=== PATIENT | male | born 1990 | race Two or more races ===

== ENCOUNTER 2020-05-04 02:48 | Inpatient (IN) | payer OTHER | END 2020-05-11 18:12 | disposition home or self-care (01) | DRG 637 | LOC: ER 02:48 → MEDJ 17:47 → MEDI 18:46 | PROVIDERS: ADMIT Internal Medicine | PROC: BW21ZZZ Computerized Tomography (CT Scan) of Abdomen and Pelvis (ICD-10-PCS; 2020-05-04) | PROC: BW40ZZZ Ultrasonography of Abdomen (ICD-10-PCS; 2020-05-06) | PROC: CF2YYZZ Tomographic (Tomo) Nuclear Medicine Imaging of Hepatobiliary System and Pancreas using Other Radionuclide (ICD-10-PCS; principal; 2020-05-08) | DX: E10.65 Type 1 diabetes mellitus with hyperglycemia (principal); A41.9 Sepsis, unspecified organism; K29.70 Gastritis, unspecified, without bleeding; E86.0 Dehydration; I80.8 Phlebitis and thrombophlebitis of other sites; Z79.4 Long term (current) use of insulin ==

== ENCOUNTER 2021-02-16 12:45 | Inpatient (IN) | payer OTHER ==
[~2021-02-16] VITALS: Ht 185.4 cm; Wt 78.0 kg
[~2021-02-16 12:45] MED LIST: HUMALOG MI100 UNIT/1
[2021-02-16] MEDS ORDERED: SEMGLEE100 UNIT/1 ×2 (13:02→13:03)
== END 2021-02-19 13:39 | disposition home or self-care (01) | DRG 639 ==
LOC: ER 12:45 → ICU-2 21:23 → ICU 02-17 20:40 → MEDI 02-18 13:38
PROVIDERS: ADMIT Internal Medicine; ATTEND Internal Medicine
DX: E10.10 Type 1 diabetes mellitus with ketoacidosis without coma (principal); E10.43 Type 1 diabetes mellitus with diabetic autonomic (poly)neuropathy; K52.9 Noninfective gastroenteritis and colitis, unspecified; E86.0 Dehydration; Z79.4 Long term (current) use of insulin; Z20.822 Contact with and (suspected) exposure to COVID-19

== ENCOUNTER 2022-03-08 12:23 | Inpatient (IN) | payer OTHER ==
[~2022-03-08] VITALS: Ht 182.9 cm; Wt 80.7 kg
[~2022-03-08 12:23] MED LIST changes: +SEMGLEE100 UNIT/1
[2022-03-21] MEDS ORDERED: BACTRIM DS TAB1 EACH PO (13:34)
== END 2022-03-21 15:17 | disposition home or self-care (01) | DRG 638 ==
LOC: ER 12:23 → ICU 17:58 → ICU-2 17:58 → ICU 03-09 00:03 → SURH 03-16 20:20
PROVIDERS: ADMIT Internal Medicine; ATTEND Internal Medicine
PROC: B24BZZZ Ultrasonography of Heart with Aorta (ICD-10-PCS; principal; 2022-03-10)
PROC: BQ3FYZZ Magnetic Resonance Imaging (MRI) of Left Lower Leg using Other Contrast (ICD-10-PCS; 2022-03-13)
PROC: 02HV33Z Insertion of Infusion Device into Superior Vena Cava, Percutaneous Approach (ICD-10-PCS; 2022-03-15)
DX: E10.10 Type 1 diabetes mellitus with ketoacidosis without coma (principal); N17.8 Other acute kidney failure; L03.116 Cellulitis of left lower limb; L02.416 Cutaneous abscess of left lower limb; M60.052 Infective myositis, left thigh; Z79.4 Long term (current) use of insulin; E86.0 Dehydration; E87.8 Other disorders of electrolyte and fluid balance, not elsewhere classified; B95.61 Methicillin susceptible Staphylococcus aureus infection as the cause of diseases classified elsewhere; R00.0 Tachycardia, unspecified; Z20.822 Contact with and (suspected) exposure to COVID-19
CPT/HCPCS: 73725

== ENCOUNTER 2023-04-08 03:02 | Inpatient (IN) | payer OTHER ==
[~2023-04-08] VITALS: Ht 185.4 cm; Wt 77.6 kg
[~2023-04-08 03:02] MED LIST changes: +BACTRIM DS TAB1 EACH PO
[2023-04-10] MEDS ORDERED: Lantus 1000 UNITS/10 SUBCUTANEO (11:30)
[2023-04-10] MEDS ORDERED: HUMALOG100 UNIT/1 SUBCUTANEO (11:30)
== END 2023-04-10 13:57 | disposition home or self-care (01) | DRG 638 ==
LOC: ER → ICU-2 09:51 → ICU 09:51 → MEDJ 04-09 16:26 → ICU 04-09 16:31 → MEDJ 04-09 18:44
PROVIDERS: ADMIT Internal Medicine; ATTEND Internal Medicine
PROC: 3E0F7GC Introduction of Other Therapeutic Substance into Respiratory Tract, Via Natural or Artificial Opening (ICD-10-PCS; principal; 2023-04-08)
DX: E10.10 Type 1 diabetes mellitus with ketoacidosis without coma (principal); N17.8 Other acute kidney failure; E86.0 Dehydration; E10.65 Type 1 diabetes mellitus with hyperglycemia

== ENCOUNTER 2025-03-29 20:25 | Inpatient (IN) | payer OTHER ==
[~2025-03-29] VITALS: Ht 185.4 cm; Wt 79.4 kg
[~2025-03-29 20:25] MED LIST changes: +HUMALOG100 UNIT/1 SUBCUTANEO; +Lantus 1000 UNITS/10 SUBCUTANEO
--- NOTE | 2025-03-29 21:10 | NUR ---
SE RECIBE PTE ALERTA, ORIENTADO X3 Y AMBULANDO. PTE REFIERE QUEMADURA EN PIERNA HACE 1 SEMANA. AREA SE OBSERVA CON NECROSIS Y SUPURANDO. AL MOMENTO DE TRIAGE TEMP. 101.1, PULSO 124 Y DEXTRO 533. SE MIDEN S/V Y SE UBICA.
[2025-03-29] MEDS ORDERED: PIPERACILLIN/TAZOBACTAM SODIUM 3.375 GM VIAL IV ONE (23:00)
[2025-03-29] MEDS ORDERED: INSULIN REGULAR, HUMAN 1,000 UNIT/10 ML UNITS IV ONE (23:00)
[2025-03-29] MEDS ORDERED: FAMOtidine 10 MG/ML (4ML VIAL) IV ONE (23:00)
[2025-03-29] MEDS ORDERED: 0.9 % SODIUM CHLORIDE 1,000 ML IV ONE (23:00)
--- NOTE | 2025-03-29 23:30 | NUR ---
MR DUNCAN ORIENTA SOBRE TRATAMIENTO MEDICO. SE CANALIZA VENA Y SE BRAYDON MUESTRAS DE LAB. SE ADMINISTRA MEDICAMENTO POR ORDEN MEDICA. PENDIENTE PLACA
[2025-03-30 00:08] LABS: BASO % 0.8 % (0.1-1.2); EOS # 0.07 (0.04-0.54); EOS % 0.6 % (0.7-7.0); HEMOGLOBIN 13.3 g/dL (13.7-17.5); LYMPH # 0.72 (1.18-3.74); LYMPH % 6.4 % (19.3-53.1); MEAN CORPUSCULAR HEMOGLOBIN 28.5 pg (25.6-32.2); MONO % 9.8 % (4.7-12.5); NEUT # 9.15 (1.56-6.13); NEUT % 81.8 % (34.0-71.1); PLATELET COUNT 317 K/uL (163-369); RED BLOOD COUNT 4.66 M/uL (4.63-6.08); RED CELL DISTRIBUTION WIDTH 12.1 % (11.6-14.4)
[2025-03-30 00:33] LABS: ALBUMIN 3.1 gm/dL (3.4-5.0); BILIRUBIN TOTAL 0.64 mg/dL (0.3-1.2); CALCIUM 8.9 mg/dL (8.5-10.1); CREATININE SERUM 0.9 mg/dL (0.70-1.30); GFR 96.59; GLOBULINA 4.3 G/DL (2.4-3.5); POTASSIUM 3.73 mEq/L (3.5-5.1); TOTAL PROTEIN 7.4 gm/dL (6.4-8.2)
[2025-03-30 00:49] LABS: PH,URINE 5.5 (5.0-8.0); URINE APPEARANCE Clear; URINE BILIRRUBIN Negative (NEGATIVE); URINE BLOOD Negative; URINE COLOR Yellow; URINE LEUKOCYTE Trace; URINE NITRATE Negative; URINE PROTEIN Negative (NEGATIVE)
[2025-03-30 00:52] LABS: URINE BACTERIA 151.7 uL (0.0-1933); URINE EPITHELIAL CELLS 6.3 uL (0.0-38.8); URINE WBC 116.4 uL (0.0-23.2)
[2025-03-30 00:53] LABS: PARTIAL THROMBOPLASTIN TIME 28.7 SECONDS (22.0-34.0); PROTHROMBIN TIME 10.9 SECONDS (9.0-11.5)
[2025-03-30 01:03] LABS: URINE GLUCOSE >=1000 MG/DL (NEGATIVE); URINE KETONE 80 (NEGATIVE)
[2025-03-30] MEDS ORDERED: PIPERACILLIN/TAZOBACTAM SODIUM 3.375 GM in 0.9 % SODIUM CHLORIDE 100 ML IV SCH (06:00)
--- NOTE | 2025-03-30 06:26 | NUR ---
SE DANIELA DXT 350MG/DL, SE NOTIFICA A DR. RICHARDSON.
[2025-03-30] MEDS ORDERED: INSULIN REGULAR, HUMAN 1,000 UNIT/10 ML UNITS IV ONE (07:00)
[2025-03-30] MEDS ORDERED: DEXTROSE 50 % IN WATER 0.5 G/ML DISP.SYRIN IV PRN (09:30)
[2025-03-30] MEDS ORDERED: INSULIN LISPRO 1,000 UNIT/10 ML UNITS SUBCUTANEO PRN (09:30)
[2025-03-30] MEDS ORDERED: RINGERS SOLUTION,LACTATED 1,000 ML IV STA (09:32)
[2025-03-30] MEDS ORDERED: RINGERS SOLUTION,LACTATED 1,000 ML IV SCH (10:45)
[2025-03-30] MEDS ORDERED: SODIUM HYPOCHLORITE 1OZ TOP SCH (10:48)
[2025-03-30 17:22] VITALS: BP 147/87; O2SAT 99
[2025-03-30 17:42] LABS: COVID-19 AG NEGATIVE (NEGATIVE)
[2025-03-30 17:52] LABS: C-REACTIVE PROTEIN 10.2 MG/DL (0.00-0.29)
[2025-03-30] MEDS ORDERED: INSULIN GLARGINE,HUM.REC.ANLOG 1,000 UNITS/10 ML UNITS SUBCUTANEO SCH (21:00)
[2025-03-30] MEDS ORDERED: ATORVASTATIN CALCIUM 20 MG TABLET PO SCH (22:49)
[2025-03-31 00:52] VITALS: BP 115/69; O2SAT 100
[2025-03-31] MEDS ORDERED: ENOXAPARIN SODIUM 40 MG/0.4 ML SYRINGE SUBCUTANEO SCH (09:00)
[2025-03-31 09:28] VITALS: BP 118/77; O2SAT 97
[2025-03-31 10:09] LABS: ALBUMIN 2.8 gm/dL (3.4-5.0); BILIRUBIN TOTAL 0.82 mg/dL (0.3-1.2); CALCIUM 9.2 mg/dL (8.5-10.1); CREATININE SERUM 0.92 mg/dL (0.70-1.30); GFR 94.17; GLOBULINA 3.9 G/DL (2.4-3.5); MAGNESIUM 1.8 mg/dL (1.8-2.4); PHOSPHOROUS 2.2 mg/dL (2.5-4.9); POTASSIUM 4.64 mEq/L (3.5-5.1); TOTAL PROTEIN 6.7 gm/dL (6.4-8.2)
[2025-03-31] MEDS ORDERED: SODIUM PHOS,M-BASIC-D-BASIC 3 MMOL/ML VIAL IV ONE (12:00)
[2025-03-31] MEDS ORDERED: INSULIN LISPRO 1,000 UNIT/10 ML UNITS SUBCUTANEO ONE (17:45)
[2025-03-31 18:04] VITALS: BP 144/88; O2SAT 99
[2025-03-31 20:04] LABS: EOS % 2.3 % (0.7-7.0); HEMATOCRIT 31.1 % (40.1-51.0); HEMOGLOBIN 10.6 g/dL (13.7-17.5); LYMPH % 7.9 % (19.3-53.1); MEAN CORPUSCULAR HEMOGLOBIN 28.4 pg (25.6-32.2); MONO % 11.8 % (4.7-12.5); NEUT % 76.4 % (34.0-71.1); PLATELET COUNT 221 K/uL (163-369); RED BLOOD COUNT 3.73 M/uL (4.63-6.08); RED CELL DISTRIBUTION WIDTH 12.8 % (11.6-14.4)
[2025-03-31 20:05] LABS: EOS # 0.12 (0.04-0.54); LYMPH # 0.41 (1.18-3.74); MONO # 0.61 (0.24-0.82); NEUT # 3.95 (1.56-6.13)
[2025-03-31] MEDS ORDERED: INSULIN GLARGINE,HUM.REC.ANLOG 1,000 UNITS/10 ML UNITS SUBCUTANEO SCH (21:00)
[2025-04-01 03:03] VITALS: BP 132/80; O2SAT 96
[2025-04-01] MEDS ORDERED: INSULIN LISPRO 1,000 UNIT/10 ML UNITS SUBCUTANEO SCH (08:00)
[2025-04-01 11:53] VITALS: BP 129/87
[2025-04-01] MEDS ORDERED: VANCOMYCIN HCL 5 MG/ML REDILUIDO IV SCH (13:00)
[2025-04-01 14:45] LABS: BASO % 1.5 % (0.1-1.2); EOS # 0.18 (0.04-0.54); EOS % 3.1 % (0.7-7.0); HEMATOCRIT 37.3 % (40.1-51.0); HEMOGLOBIN 12.7 g/dL (13.7-17.5); LYMPH # 0.47 (1.18-3.74); MEAN CORPUSCULAR HEMOGLOBIN 28.2 pg (25.6-32.2); MONO # 0.77 (0.24-0.82); NEUT % 73.7 % (34.0-71.1); PLATELET COUNT 220 K/uL (163-369); RED BLOOD COUNT 4.51 M/uL (4.63-6.08); RED CELL DISTRIBUTION WIDTH 12.7 % (11.6-14.4)
[2025-04-01 14:47] LABS: MONO % 13.2 % (4.7-12.5)
[2025-04-01] MEDS ORDERED: RIVAROXABAN 15 MG TABLET PO SCH (17:00)
[2025-04-01 19:13] VITALS: BP 148/85
[2025-04-02 03:57] VITALS: BP 110/73
[2025-04-02 08:49] VITALS: BP 139/87; O2SAT 99
[2025-04-02 18:52] VITALS: BP 148/90; O2SAT 98
[2025-04-03] VITALS: BP 133/76; O2SAT 97
[2025-04-03 07:56] VITALS: BP 134/84
[2025-04-03] MEDS ORDERED: INSULIN LISPRO 1,000 UNIT/10 ML UNITS SUBCUTANEO SCH (08:00)
[2025-04-03] MEDS ORDERED: levoFLOXacin IN DEXTROSE 5 % 150 ML IV SCH (12:00)
[2025-04-03] MEDS ORDERED: LEVOFLOXACIN750 MG PO (13:09)
[2025-04-03] MEDS ORDERED: BACTRIM DS TAB1 EACH PO (13:12)
[2025-04-03] MEDS ORDERED: INTESTINEX680 M1 PO (13:13)
[2025-04-03] MEDS ORDERED: XARELTO15 MG PO (13:13)
[2025-04-03] MEDS ORDERED: LIPITOR20 MG PO (13:14)
[2025-04-03] MEDS ORDERED: LANTUS SOL100 UNIT/1 SUBCUTANEO (13:14)
[2025-04-03] MEDS ORDERED: XARELTO20 MG PO (13:14)
[2025-04-03] MEDS ORDERED: HUMALOG JU100 UNIT/1 SUBCUTANEO (13:16)
[2025-04-03] MEDS ORDERED: CHLORHEXIDINE GLUCONATE 120 ML BOTTLE TOP SCH (17:00)
[2025-04-03] MEDS ORDERED: MUPIROCIN 22 GM OINT..GM TUBE NASAL SCH (17:00)
[2025-04-03] MEDS ORDERED: INSULIN GLARGINE,HUM.REC.ANLOG 1,000 UNITS/10 ML UNITS SUBCUTANEO SCH (21:00)
[2025-04-03] MEDS ORDERED: SULFAMETHOXAZOLE/TRIMETHOPRIM DS 1 TAB PO SCH (21:00)
== END 2025-04-03 14:10 | disposition home or self-care (01) | DRG 603 ==
LOC: ER 20:36 → MEDJ 03-30 10:46
PROVIDERS: General Practice; ADMIT Internal Medicine; ATTEND Internal Medicine
PROC: BQ3DZZZ Magnetic Resonance Imaging (MRI) of Right Lower Leg (ICD-10-PCS; 2025-03-30)
PROC: 0HBKXZZ Excision of Right Lower Leg Skin, External Approach (ICD-10-PCS; principal; 2025-03-31)
PROC: B54BZZZ Ultrasonography of Right Lower Extremity Veins (ICD-10-PCS; 2025-03-31)
DX: L03.115 Cellulitis of right lower limb (principal); L97.919 Non-pressure chronic ulcer of unspecified part of right lower leg with unspecified severity; E10.9 Type 1 diabetes mellitus without complications; Z79.4 Long term (current) use of insulin; A49.02 Methicillin resistant Staphylococcus aureus infection, unspecified site
CPT/HCPCS: 73725